=== PATIENT | male | born 1995 | race Caucasian/White ===

== ENCOUNTER 2017-05-22 04:32 | Emergency (ER) | payer OTHER ==
[2017-05-22] MEDS ORDERED: ONDANSETRON 4 MG/2 ML VIAL ONE (04:36)
[2017-05-22 04:45] VITALS: RESP 16; TEMP 97.9; O2SAT 95
[2017-05-22] MEDS ORDERED: NS 1,000 ML IV ONE (04:46)
[2017-05-22] MEDS ORDERED: ONDANSETRON 4 MG/2 ML VIAL IVP ONE (04:46)
--- NOTE | 2017-05-22 04:48 | EDPHY ---
H & P Stated Complaint: n/v/d Time Seen by Provider: 05/22/17 04:42 HPI/ROS: Chief Complaint: Nausea, vomiting HPI: 22-year-old male has been having multiple episodes of nausea vomiting for the last several hours. He has not been able to keep anything down. Has had some subjective chills. No cough. No shortness of breath. Has been having some mild crampy abdominal pain. No diarrhea constipation. Patient does admit to drinking some alcohol last night but does not think that this is related. ROS: 10 point Review of Systems is negative except as noted in the HPI. PMH: Exercise-induced asthma Social History: No smoking, occasional alcohol, no recreational drug use Family History: non-contributory Physical Exam: Gen: Awake, Alert, No Distress HEENT: Nose: no rhinorrhea Eyes: PERRLA, EOMI Mouth: Dry mucosa Neck: Supple, no JVD Chest: nontender, lungs clear to auscultation Heart: S1, S2 normal, no murmur Abd: Soft, non-tender, no guarding Back: no CVA tenderness, no midline tenderness Ext: no edema, non-tender Skin: no rash Neuro: CN II-XII intact, Sensation grossly intact, Strength 5/5 in bilateral upper and lower extremities - Personal History Current Tetanus/Diphtheria Vaccine: Yes Current Tetanus Diphtheria and Acellular Pertussis (TDAP): Yes - Medical/Surgical History Hx Asthma: Yes Hx Chronic Respiratory Disease: No Hx Diabetes: No Hx Cardiac Disease: No Hx Renal Disease: No Hx Cirrhosis: No Hx Alcoholism: No Hx HIV/AIDS: No Hx Splenectomy or Spleen Trauma: No Other PMH: none - Social History Smoking Status: Never smoked Constitutional: Initial Vital Signs Temperature (C) 36.6 C 05/22/17 04:43 Heart Rate 108 H 05/22/17 04:43 Respiratory Rate 16 05/22/17 04:43 Blood Pressure 155/90 H 05/22/17 04:43 O2 Sat (%) 95 05/22/17 04:43 O2 Delivery Mode Room Air Allergies/Adverse Reactions: No Known Allergies Allergy (Unverified 05/22/17 04:42) Home Medications: Medication Instructions Recorded NK [No Known Home Meds] 05/22/17 Medical Decision Making ED Course/Re-evaluation: 0600 patient is improved. He is tolerating p.o.. Has a soft benign abdomen. Will discharge with Zofran prepack - Data Points Medications Given: Discontinued Medications Sodium Chloride (Ns) 1,000 mls @ 0 mls/hr IV ONCE ONE; Wide Open PRN Reason: Protocol Stop: 05/22/17 04:47 Last Admin: 05/22/17 04:51 Dose: 1,000 mls Ketorolac Tromethamine (Toradol) 15 mg IVP EDNOW ONE Stop: 05/22/17 05:25 Last Admin: 05/22/17 05:26 Dose: 15 mg Ondansetron HCl (Zofran) 4 mg IVP EDNOW ONE Stop: 05/22/17 04:47 Last Admin: 05/22/17 04:51 Dose: 4 mg Departure - Departure Disposition: Home, Routine, Self-Care Clinical Impression: Nausea & vomiting, Dehydration Condition: Good Instructions: Ondansetron (By mouth), Acute Nausea and Vomiting (ED) Additional Instructions: Make sure to drink plenty of clear liquids. Avoid alcohol and caffeine until symptoms had been gone for at least 48 hr. You may take Zofran as needed for nausea. Follow up with psychiatric hospital in 2-3 days if symptoms are not improving. Return to the emergency department for increasing nausea, vomiting, abdominal pain, fevers, chills, or any other concern. Referrals: HOWARD Hutchinson,. [Clinic] - As per Instructions
[2017-05-22] MEDS ORDERED: KETOROLAC 15 MG/1 ML SDV IVP ONE (05:24)
[2017-05-22] MEDS ORDERED: ONDANSETRON 4MG PREPACK#2 BTL TAKEHOME ONE (05:30)
[2017-05-22 06:13] VITALS: BP 136/88; PULSE 82
== END 2017-05-22 06:14 | disposition home or self-care (01) ==
DX: E86.0 Dehydration (principal); E86.9 Volume depletion, unspecified; J45.909 Unspecified asthma, uncomplicated
CPT/HCPCS: 96374; J1885; J2405